=== PATIENT | male | born 1945 | race Two or more races ===

== ENCOUNTER 2020-02-13 00:29 | Emergency (ER) | payer OTHER ==
[~2020-02-13] VITALS: Ht 152.4 cm; Wt 72.6 kg
[2020-02-13] MEDS ORDERED: AMLODIPINE BESYL5 MG (00:38)
[2020-02-13] MEDS ORDERED: MOBIC15 MG PO (08:08)
== END 2020-02-13 12:23 | disposition home or self-care (01) ==
LOC: ER 00:29
DX: S30.0XXA Contusion of lower back and pelvis, initial encounter (principal); S16.1XXA Strain of muscle, fascia and tendon at neck level, initial encounter; W18.39XA Other fall on same level, initial encounter; Y93.89 Activity, other specified; Y92.098 Other place in other non-institutional residence as the place of occurrence of the external cause; Y99.8 Other external cause status